=== PATIENT | female | born 1970 | race Caucasian/White ===

== ENCOUNTER 2024-07-17 00:17 | Emergency (ER) | payer SELFPAY ==
[2024-07-17 00:19] VITALS: BP 221/103; PULSE 88; RESP 18; TEMP 36.7; O2SAT 99; BMI 27.3
--- NOTE | 2024-07-17 00:30 | HMH.EDGENADL ---
Discharge Plan Disposition Patient Disposition: Left Against Medical Advice Referrals Follow up/Referrals: Provider,Referral, [Primary Care Provider] - See instructions Clinical Impressions Clinical Impression: Low back pain Discharge ED Provider: Tolu Ching Adult HPI General Stated complaint: severe lower back pain, numbness L leg Time Seen by Provider: 07/17/24 00:23 History of Present Illness HPI narrative: 54-year-old female presents to the ER with exacerbation of chronic back pain. Patient reports she has a history of hypertension, stroke due to PFO in her 30s. She reports the last 2 days she has had worse than normal low back pain radiating down the left leg. She reports the pain waxes and wanes. She goes to the pain clinic in [place] and has been taking tramadol, Lyrica. She states she has also been laying on a heating pad. She reports she has had intermittent sensory change in her left foot but currently it feels normal. She states she has had symptoms like this in the past due to her back pain. She came to the ER requesting pain medications. She has not had any trauma, falls, specific injuries, she does not recall a specific inciting event. She has not had any recent sick symptoms, no fevers, chills, chest pain, difficulty breathing, she does not report any saddle anesthesia, bowel or bladder incontinence or retention, she ambulated independently into the ER. She denies dysuria, hematuria, flank pain. She currently has no numbness or weakness. She denies any other deficits or symptoms. [facility] Disclaimer: The information contained in this section may have been updated after the patient was seen, as this information can be updated by other users. Social History Smoking Status: Unknown if ever smoked alcohol intake: never current occupational status: other details: unknown Travel in the last 8 weeks: None ROS Obtained: Yes Systems reviewed as appropriate & no additional complaints except as documented Per HPI Physical Exam General General appearance: alert and in no apparent distress Head Head exam: atraumatic and normocephalic Eye Eye exam: Present PERRL and EOMI ENT ENT exam: Present mucous membranes moist Neck Neck exam: Present normal inspection and full ROM Chest Chest inspection: Present symmetric chest wall rise Respiratory Respiratory exam: Absent respiratory distress or stridor Cardiovascular Cardiovascular exam: Present regular rate and normal rhythm Extremities Exam Extremities exam: Present full ROM; Absent tenderness, edema, joint swelling or calf tenderness Back Exam Back exam: Present full ROM, tenderness (Mild tenderness over the sacrum) and sciatic notch tenderness (L); Absent CVA tenderness (R), CVA tenderness (L), muscle spasm, paraspinal tenderness, vertebral tenderness or sciatic notch tenderness (R) Neurological Exam Neurological exam: Present alert, oriented X3, CN II-XII intact, normal gait and other (No saddle anesthesia); Absent motor sensory deficit (Patient reports sensation in the bilateral lower extremities at baseline. She states she has mild residual sensory deficit in the right foot but that is at baseline. She has no sensory deficit in the left foot or left lower extremity at this time. 5 out of 5 strength.) Psychiatric Psychiatric exam: Present normal affect and normal mood Skin Skin exam: Present warm and dry Medical Decision Making Medical Records Screening: Per USPSTF and CDC recommendations, given the prevalence of disease in our region, it is our hospital?s policy to screen for HIV and viral Hepatitis for all patients aged 18 and over and those with ongoing risk factors. [place] Inquiry Pt receiving controlled substance: No Medical Decision Narrative: In summary, this 54-year-old female with comorbidities described in the HPI presents to the emergency department today back pain radiating down the left leg. On initial evaluation patient is hypertensive but stable, GCS 15, patient reports slight sensory deficit in the right foot though her complaints are on the left. Right foot deficit is due to previous stroke. She has no other abnormalities appreciated on neuroexam. Full strength throughout. Normal gait, ambulated independently and fluidly into the ER. She does not have any vertebral tenderness, no obvious low back muscle spasm, she does have left sciatic notch tenderness, no saddle anesthesia. She has not had bowel or bladder incontinence or retention. Differential diagnosis includes but is not limited to acute on chronic low back pain, radiculopathy, sciatica, I considered cauda equina however patient has no red flag symptoms. With patient's brief discussion of transient numbness in the left lower extremity hide considered stroke however she has no evidence of this on exam as her symptoms are waxing and waning, currently absent. Patient already follows with the pain clinic in [place]. She had not taken Tylenol, ibuprofen, muscle relaxer, or lidocaine patch today so I offered these medications to her for her exacerbation of pain. She was not satisfied with this. I explained I would not be offering narcotic medications since she was already on a pain clinic regimen and did not have any red flag symptoms or findings of trauma. She was mad about this, ripped off her blood pressure cuff, and said I am leaving and going to [place] . I explained to her I was happy to treat her pain with conservative measures but she did not think the medications was offering were sufficient. Patient was able to explain back to me her condition and the risks of leaving up to and including wosening of condition, severe life altering disability, or . She was able to provide reason for this decision and clearly express this decision. Patient has capacity to make this decision and left AGAINST MEDICAL ADVICE. Bedside RN at bedside when patient made this decision. Critical Care Critical Care Time Critical Care Time: No
--- NOTE | 2024-07-17 00:42 | PC.NURSE ---
Patient presents to ER with complaints of lower back pain. Denies any difficulty ambulating. Denies loss of bowel function. States pain is in lower back and radiates down left leg. States she has taken 1 tramadol and two lyrica today. When offered services by physician, she states she is not happy with the services and medication offered and states she will just go to [place] . Patient educated on risks and insists on leaving. Declines to sign the AMA paperwork.
[2024-07-17 00:47] VITALS: BP 221/103; PULSE 88; RESP 16; TEMP 36.7; O2SAT 99
== END 2024-07-17 00:47 | disposition left against medical advice (07) ==
LOC: ER 00:53
PROVIDERS: Emergency Provider Emergency Medicine
DX: M54.50 Low back pain, unspecified (principal); R20.2 Paresthesia of skin; Z53.29 Procedure and treatment not carried out because of patient's decision for other reasons
CPT/HCPCS: 99282